=== PATIENT | male | born 1980 | race Caucasian/White ===

== ENCOUNTER 2017-01-14 12:10 | Emergency (ER) | payer MEDICAID, OTHER ==
[2017-01-14 12:10] VITALS: BMI 24.3
[2017-01-14 12:15] VITALS: O2SAT 98
[2017-01-14] MEDS ORDERED: Lidocaine 1% Inj (20ml) INFIL ONE (12:28)
[2017-01-14] MEDS ORDERED: Bacitracin 500 Units/gm Oint Foilpak UD TOP ONE (12:28)
--- NOTE | 2017-01-14 13:00 | C.PDOC ---
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 Patient states he was using a table saw which jumped out of hand. Unknown last tetanus. Patient denies LOC, back pain, shoulder pain, weakness, numbness or tingling sensation to the arm. 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 Musculoskeletal: Positive for: Other ((+) Laceration to the right forearm). Negative for: Shoulder Pain, Back Pain Neurological: Negative for: Weakness, Numbness Physical Exam - Physical Exam Appears: Well, Non-toxic, No Acute Distress Skin: Warm, Dry, No Rash Head: Atraumatic, Normacephalic Chest: Symmetrical, No Tenderness Cardiovascular: Rhythm Regular, No Murmur Extremity: Capillary Refill (<2), Other ((+) 6cm, shallow, irregular laceration to the distal right posterior forearm, diagonal) Extremity: Right: Other (full rom at elbow, wrist, all fingers against resistance, able to make fist. ) Neurological/Psych: Oriented x3, Normal Speech ED Course And Treatment O2 Sat by Pulse Oximetry: 98 Progress Note: Patient is treated with Motrin PO for the pain. Brought UTD on Teatnus. Laceration - Laceration Repair Right Forearm Wound Length (In cm): 6 Description Of Wound: Irregular Wound Cleansed With: Sterile Saline Anesthesia: Lidocaine 1% Wound Examination: Irrigated With Saline, No FB With Wound Exploration, No Tendon Injury With Wound Exploration Wound Debridement/Revision: Wound Debrided, Wound Margins Revised (edges trimmed ) Wound Closure: Suture (10) Suture Technique And Material Used: Nylon (4-0) Wound Complexity: Simple Medical Decision Making Medical Decision Making: PLAN: * Motrin PO * Tetanus IM pt made aware given irregularity of wound edges, there will be iregular scar. Disposition Counseled Patient/Family Regarding: Diagnosis, Need For Followup, Rx Given - Disposition Disposition: HOME/ ROUTINE Disposition Time: 14:41 Condition: GOOD Additional Instructions: keep wound clean and dry for 24 hours; then remove dressing and wash with soap and water; re-apply antibiotic ointment and re-bandage. Tylenol or motrin for pain; Take antibiotics as prescribed. Suture removal in 10 days. Return to ER sooner for any sign of infectin such as redness, swelling. pus from wound, or any other concerns. 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 - Scribe Statement The provider has reviewed the documentation as recorded by the Scribe Diann Decker All medical record entries made by the Laurieibcamron were at my direction and personally dictated by me. I have reviewed the chart and agree that the record accurately reflects my personal performance of the history, physical exam, medical decision making, and the department course for this patient. I have also personally directed, reviewed, and agree with the discharge instructions and disposition.
[2017-01-14] MEDS ORDERED: Lidocaine 1% Inj (20ml) ONE (13:15)
[2017-01-14] MEDS ORDERED: Bacitracin 500 Units/gm Oint Foilpak UD ONE (13:40)
[2017-01-14] MEDS ORDERED: Tetanus/Diphtheria Toxoids 0.5 ml Syringe IM ONE (13:42)
[2017-01-14 15:51] VITALS: BP 134/78; PULSE 84; RESP 20; TEMP 98.1
== END 2017-01-14 14:46 | disposition home or self-care (01) ==
LOC: C.ER 12:10
DX: S51.811A Laceration without foreign body of right forearm, initial encounter (principal); W45.8XXA Other foreign body or object entering through skin, initial encounter